=== PATIENT | female | born 1940 | race Caucasian/White ===

== ENCOUNTER 2017-06-18 05:26 | Inpatient (IN) | payer MEDICARE, BC ==
[2017-06-05 11:11] LABS: BASOPHILS # (AUTO) 0.1 X10'3 (0-0.2); BASOPHILS % (AUTO) 0.6 % (0-1); EOSINOPHILS # (AUTO) 0.1 X10'3 (0-0.9); EOSINOPHILS % (AUTO) 1.6 % (0-6); LYMPHOCYTES # (AUTO) 0.5 X10'3 (1.1-4.8); LYMPHOCYTES % (AUTO) 6.4 % (21-51); MEAN CORPUSCULAR HEMOGLOBIN 27.3 PG (27.0-31.0); MEAN CORPUSCULAR HGB CONC 31.8 % (33.0-36.5); MEAN CORPUSCULAR VOLUME 86.1 FL (78-98); MEAN PLATELET VOLUME 7.4 FL (7.4-10.4); MONOCYTES # (AUTO) 1.1 X10'3 (0-0.9); MONOCYTES % (AUTO) 12.6 % (2-12); NEUTROPHILS # (AUTO) 6.6 X10'3 (1.8-7.7); NEUTROPHILS % (AUTO) 78.8 % (42-75); PRE OP HEMATOCRIT 34.4 % (35.0-45.0); PRE OP PLATELET COUNT 447 X10'3 (140-440); RED CELL DISTRIBUTION WIDTH 17.2 % (11.5-14.5)
[2017-06-05 11:14] LABS: PRE OP HEMOGLOBIN 10.9 g/dL (12.0-16.0)
[2017-06-05 11:28] LABS: ALBUMIN 3.3 G/DL (3.4-5.0); ALBUMIN/GLOBULIN RATIO 0.8 (1.1-1.5); ALKALINE PHOSPHATASE 82 IU/L (46-116); BLOOD UREA NITROGEN 7 MG/DL (7-18); BUN/CREATININE RATIO 12.3 (6.6-38.0); CHLORIDE 96 MMOL/L (99-107); CREATININE 0.57 MG/DL (0.40-0.90); PRE OP ALT 19 U/L (30-65); PRE OP ANION GAP 8 (8-16); PRE OP AST 15 U/L (10-37); PRE OP BILIRUB, TOTAL 0.2 MG/DL (0.0-1.0); PRE OP GLUCOSE 130 MG/DL (70-104); PRE OP POTASSIUM 3.8 MMOL/L (3.4-5.1); PRE OP SODIUM 134 MMOL/L (135-145); TOTAL CARBON DIOXIDE 30.5 MMOL/L (24-32); TOTAL PROTEIN 7.6 G/DL (6.4-8.2); eGFR > 90 ML/MIN
[~2017-06-18] VITALS: Ht 154.9 cm; Wt 50.3 kg
[2017-06-18] VITALS (18 sets, daily range): BP systolic 93–118; BP diastolic 39–67
[~2017-06-18 05:26] MED LIST: ACET-2119 PO; AMLO5TAB PO; ASPI-611 PO; BENA20TA2 PO; CLOP75TA33 PO; DOCU-28 PO; MULT-1085 PO; SPIIN IH; [UNRECOGNIZED DRUG - REMARK] IV ONE; ringers solution, lacted 1,000 ML IV SCH
[2017-06-18] MEDS ORDERED: oxyCODONE SR 10mg (sust. release) tab PO ONE (05:30)
[2017-06-18] MEDS ORDERED: celeCOXIB 100mg capsule PO ONE (05:30)
[2017-06-18] MEDS ORDERED: acetaminophen 325mg tablet PO ONE (05:30)
[2017-06-18] MEDS ORDERED: clindamycin-Cleocin 900mg/D5W 50 ML IV ONE (05:30)
[2017-06-18] MEDS ORDERED: famotidine 20mg tablet PO ONE (05:30)
[2017-06-18] MEDS ORDERED: gabapentin 300mg capsule PO ONE (05:30)
[2017-06-18] MEDS ORDERED: metoclopramide 5 mg/ml inj IV ONE (05:30)
[2017-06-18] MEDS ORDERED: VANCOMYCIN INJ 1000 MG in NORMAL SALINE 250ml IV.SOLN IV ONE (05:30)
[2017-06-18] MEDS ORDERED: LIDOcaine 1% (10mg/ml) 2ml vial ONE (05:55)
[2017-06-18] MEDS ORDERED: ceFAZolin 2gm in dextrose, iso 50 ML IV ONE ×2 (06:20→07:10)
[2017-06-18 06:31] LABS: CLARITY,URINE CLOUDY (Clear); COLOR,URINE STRAW (Yellow); GLUCOSE, URINE NEGATIVE (Neg); KETONES,URINE NEGATIVE (Neg); LEUKOCYTE ESTERASE ,URINE LARGE (Neg); NITRITES, URINE NEGATIVE (Neg); OCCULT BLOOD,URINE MODERATE (Neg); PH,URINE 6.5 (4.8-8.0); PROTEIN,URINE NEGATIVE (Neg); UROBILINOGEN,URINE 0.2 E.U/dL (0.2-1.0)
[2017-06-18 06:40] LABS: UA COLLECTION TYPE NON-SPECIFIED
[2017-06-18 06:41] LABS: BACTERIA,URINE 2+ /HPF (Neg); RBC,URINE 0-2 /HPF (0-2); SQUAMOUS EPITHELIAL CELL,UR FEW /LPF (FEW); WBC,URINE TNTC /HPF (0-4)
[2017-06-18] MEDS ORDERED: ketorolac trometh. 30mg/ml inj. ONE (07:03)
[2017-06-18] MEDS ORDERED: ROPIVAcaine 0.5% (5mg/ml) 30ml vial ONE (07:04)
[2017-06-18] MEDS ORDERED: epiNEPHrine 1 mg/ml inj ONE (07:04)
[2017-06-18] MEDS ORDERED: vancomycin 1,000mg inj ONE (07:04)
[2017-06-18] MEDS ORDERED: cloNIDine hcl/PF 100mcg/ml inj ONE ×2 (07:04→07:25)
[2017-06-18] MEDS ORDERED: albuterol 2.5 MG/3 ML nebule NEB STA (07:09)
[2017-06-18] MEDS ORDERED: ceFAZolin 2gm in dextrose, iso 100 ML IV ONE (07:10)
[2017-06-18] MEDS ORDERED: albuterol 2.5 MG/3 ML nebule ONE (07:20)
[2017-06-18] MEDS ORDERED: tranexamic acid inj. 1,000 MG in normal saline 100ml IV soln 90 ML IV ONE (07:25)
[2017-06-18] MEDS ORDERED: EPHEDRINE SULFATE/0.9% NACL/PF 50 MG/5 ML ML IJ ONE (07:26)
[2017-06-18] MEDS ORDERED: MORPHINE SULFATE/PF 0.5 MG/ML 10ML AMPUL ONE (07:31)
[2017-06-18] MEDS ORDERED: MIDAZolam 1mg/ml 10ml vial ONE (07:31)
[2017-06-18] MEDS ORDERED: NALOXONE IV PRN (08:29)
[2017-06-18] MEDS ORDERED: NORMAL SALINE IV PRN (08:29)
[2017-06-18] MEDS ORDERED: ringers solution, lacted 1,000 ML IV SCH (08:29)
[2017-06-18] MEDS ORDERED: meperidine/PF 25mg/ml syringe IV PRN (08:30)
[2017-06-18] MEDS ORDERED: ondansetron/PF 4mg/2ml inj IV PRN ×3 (08:30→09:45)
[2017-06-18] MEDS ORDERED: diphenhydrAMINE 50 mg/ml inj IV PRN (08:30)
[2017-06-18] MEDS ORDERED: meperidine/PF 25mg/ml syringe IV ONE (08:30)
[2017-06-18] MEDS ORDERED: proCHLORperazine 10 MG/2 ml inj IV PRN (08:30)
[2017-06-18] MEDS ORDERED: 0.9 % SODIUM CHLORIDE 10 ML VIAL ONE (09:31)
[2017-06-18] MEDS ORDERED: dexamethasone sod phosphate 4mg/ml inj. ONE (09:31)
[2017-06-18] MEDS ORDERED: propofol inj 20 ML IV ONE (09:31)
[2017-06-18] MEDS ORDERED: BUPIVAcaine/PF 2.5 mg/ml (0.25%) 30ml vial ONE (09:31)
[2017-06-18] MEDS ORDERED: acetaminophen 325mg tablet PO PRN (09:45)
[2017-06-18] MEDS ORDERED: magnesium hydroxide 30ml (MOM) UD suspension PO PRN (09:45)
[2017-06-18] MEDS ORDERED: HYDROcodone/acetaminophen 10/325mg tab PO PRN (09:45)
[2017-06-18] MEDS ORDERED: HYDROmorphone 1 mg/ml syringe IV PRN ×2 (09:45)
[2017-06-18] MEDS ORDERED: bisacodyl 10mg suppository rectal RC PRN (09:45)
[2017-06-18] MEDS ORDERED: diphenhydrAMINE 25mg capsule PO PRN ×2 (09:45)
[2017-06-18] MEDS: potassium cl 20mEq in 1/2 NS 1,000 ML IV SCH ×2 (12:15→20:08)
[2017-06-18] MEDS: gabapentin 300mg capsule PO SCH ×2 (14:59→20:08)
[2017-06-18] MEDS: cefazolin 1gm/NS 100mL 100 ML IV SCH ×2 (15:56→23:19)
[2017-06-18] MEDS ORDERED: vancomycin/NS 1 GM ADD-VANTAGE 250 ML IV SCH (20:00)
[2017-06-18] MEDS: ascorbic acid 500mg tablet PO SCH (20:08)
[2017-06-18] MEDS: sennosides 8.6mg tablet PO SCH (20:09)
[2017-06-19] VITALS (7 sets, daily range): BP systolic 105–129; BP diastolic 42–66
[2017-06-19] MEDS: potassium cl 20mEq in 1/2 NS 1,000 ML IV SCH ×3 (01:43→15:20)
[2017-06-19] MEDS: HYDROcodone/acetaminophen 10/325mg tab PO PRN ×4 (05:07→20:10)
[2017-06-19 06:35] LABS: BASOPHILS % (AUTO) 0.2 % (0-1); EOSINOPHILS # (AUTO) 0.2 X10'3 (0-0.9); EOSINOPHILS % (AUTO) 1.5 % (0-6); HEMATOCRIT 25.9 % (35.0-45.0); HEMOGLOBIN 8.2 g/dl (12.0-16.0); LYMPHOCYTES # (AUTO) 0.5 X10'3 (1.1-4.8); MEAN CORPUSCULAR HEMOGLOBIN 26.8 PG (27.0-31.0); MEAN CORPUSCULAR HGB CONC 31.6 % (33.0-36.5); MEAN CORPUSCULAR VOLUME 84.6 FL (78-98); MEAN PLATELET VOLUME 7.2 FL (7.4-10.4); MONOCYTES # (AUTO) 1.2 X10'3 (0-0.9); MONOCYTES % (AUTO) 11.4 % (2-12); NEUTROPHILS # (AUTO) 8.9 X10'3 (1.8-7.7); NEUTROPHILS % (AUTO) 81.9 % (42-75); PLATELET COUNT 307 X10'3 (140-440); RED BLOOD COUNT 3.06 X10'6 (4.20-5.60); RED CELL DISTRIBUTION WIDTH 17.2 % (11.5-14.5); WHITE BLOOD COUNT 10.9 X10'3 (4.5-11.0)
[2017-06-19 06:48] LABS: ANION GAP 2 (8-16); CHLORIDE 98 MMOL/L (99-107); POTASSIUM 5.1 MMOL/L (3.5-5.1); SODIUM 128 MMOL/L (135-145); TOTAL CARBON DIOXIDE 28.1 MMOL/L (24-32)
[2017-06-19] MEDS: multivitamins, therapeutics tablet PO SCH (07:27)
[2017-06-19] MEDS: ascorbic acid 500mg tablet PO SCH ×2 (07:27→20:10)
[2017-06-19] MEDS: gabapentin 300mg capsule PO SCH ×3 (07:27→20:10)
[2017-06-19] MEDS: amLODIPine 5mg tablet PO SCH (07:28)
[2017-06-19] MEDS: lisinopril 20mg tablet PO SCH (07:28)
[2017-06-19] MEDS ORDERED: non-formulary drug (Multivitamin (Multi Vitamin Daily) 1 EACH) PO SCH (08:00)
[2017-06-19] MEDS ORDERED: aspirin 325mg tablet PO SCH (08:30)
[2017-06-19] MEDS: ipratropium 0.5 MG/2.5ML nebule NEB SCH ×3 (10:15→20:01)
[2017-06-19] MEDS: Protein Shake (high protein) 240ml (8oz) cup PO SCH (18:00)
[2017-06-19] MEDS: sennosides 8.6mg tablet PO SCH (20:10)
[2017-06-19] MEDS: clopidogrel 75mg tablet PO SCH (20:10)
[2017-06-20] MEDS: HYDROcodone/acetaminophen 10/325mg tab PO PRN ×3 (00:07→17:50)
[2017-06-20] MEDS: potassium cl 20mEq in 1/2 NS 1,000 ML IV SCH (01:43)
[2017-06-20] MEDS: ipratropium 0.5 MG/2.5ML nebule NEB SCH ×4 (03:10→20:08)
[2017-06-20 06:00] VITALS: BP 144/57
[2017-06-20 06:52] LABS: BASOPHILS # (AUTO) 0.1 X10'3 (0-0.2); BASOPHILS % (AUTO) 0.6 % (0-1); EOSINOPHILS # (AUTO) 0.3 X10'3 (0-0.9); EOSINOPHILS % (AUTO) 2.6 % (0-6); HEMATOCRIT 27.4 % (35.0-45.0); HEMOGLOBIN 8.6 g/dl (12.0-16.0); LYMPHOCYTES # (AUTO) 0.5 X10'3 (1.1-4.8); LYMPHOCYTES % (AUTO) 4.5 % (21-51); MEAN CORPUSCULAR HEMOGLOBIN 26.4 PG (27.0-31.0); MEAN CORPUSCULAR HGB CONC 31.5 % (33.0-36.5); MEAN CORPUSCULAR VOLUME 83.9 FL (78-98); MEAN PLATELET VOLUME 7.6 FL (7.4-10.4); MONOCYTES # (AUTO) 1.3 X10'3 (0-0.9); MONOCYTES % (AUTO) 11.5 % (2-12); NEUTROPHILS # (AUTO) 8.8 X10'3 (1.8-7.7); NEUTROPHILS % (AUTO) 80.8 % (42-75); PLATELET COUNT 308 X10'3 (140-440); RED BLOOD COUNT 3.26 X10'6 (4.20-5.60); RED CELL DISTRIBUTION WIDTH 16.7 % (11.5-14.5); WHITE BLOOD COUNT 10.9 X10'3 (4.5-11.0)
[2017-06-20] MEDS: Protein Shake (high protein) 240ml (8oz) cup PO SCH ×2 (07:00→12:00)
[2017-06-20] MEDS: amLODIPine 5mg tablet PO SCH (09:42)
[2017-06-20] MEDS: lisinopril 20mg tablet PO SCH (09:43)
[2017-06-20] MEDS: gabapentin 300mg capsule PO SCH ×3 (09:43→20:40)
[2017-06-20] MEDS: multivitamins, therapeutics tablet PO SCH (09:43)
[2017-06-20] MEDS: ascorbic acid 500mg tablet PO SCH ×2 (09:43→20:40)
[2017-06-20 10:00] VITALS: BP 120/45
[2017-06-20 18:00] VITALS: BP 140/55
[2017-06-20] MEDS: sennosides 8.6mg tablet PO SCH (20:39)
[2017-06-20] MEDS: clopidogrel 75mg tablet PO SCH (20:39)
[2017-06-20 22:00] VITALS: BP 130/61
[2017-06-21] MEDS: ipratropium 0.5 MG/2.5ML nebule NEB SCH ×2 (02:13→07:37)
[2017-06-21] MEDS: HYDROcodone/acetaminophen 10/325mg tab PO PRN ×3 (03:09→11:32)
[2017-06-21 05:00] VITALS: BP 152/66
[2017-06-21 06:54] LABS: BASOPHILS % (AUTO) 0 % (0-1); EOSINOPHILS # (AUTO) 0.4 X10'3 (0-0.9); EOSINOPHILS % (AUTO) 2.9 % (0-6); HEMATOCRIT 27.3 % (35.0-45.0); HEMOGLOBIN 8.7 g/dl (12.0-16.0); LYMPHOCYTES # (AUTO) 0.8 X10'3 (1.1-4.8); LYMPHOCYTES % (AUTO) 6.5 % (21-51); MEAN CORPUSCULAR HEMOGLOBIN 26.6 PG (27.0-31.0); MEAN CORPUSCULAR HGB CONC 31.9 % (33.0-36.5); MEAN CORPUSCULAR VOLUME 83.3 FL (78-98); MEAN PLATELET VOLUME 7.6 FL (7.4-10.4); MONOCYTES % (AUTO) 7.8 % (2-12); NEUTROPHILS # (AUTO) 10.2 X10'3 (1.8-7.7); NEUTROPHILS % (AUTO) 82.8 % (42-75); PLATELET COUNT 329 X10'3 (140-440); RED BLOOD COUNT 3.27 X10'6 (4.20-5.60); WHITE BLOOD COUNT 12.3 X10'3 (4.5-11.0)
[2017-06-21] MEDS: gabapentin 300mg capsule PO SCH (08:46)
[2017-06-21] MEDS: lisinopril 20mg tablet PO SCH (08:47)
[2017-06-21] MEDS: amLODIPine 5mg tablet PO SCH (08:47)
[2017-06-21] MEDS: ascorbic acid 500mg tablet PO SCH (08:47)
[2017-06-21] MEDS: multivitamins, therapeutics tablet PO SCH (08:47)
[2017-06-21 10:00] VITALS: BP 138/60
== END 2017-06-21 12:35 | DRG 469 ==
LOC: PAS IN 05:26 → EDSTATUS 08:30 → ORTHO 4S 10:40
PROVIDERS: ADMIT Orthopaedic Surgery; ATTEND Orthopaedic Surgery
PROC: 3E0T3BZ Introduction of Anesthetic Agent into Peripheral Nerves and Plexi, Percutaneous Approach (ICD-10-PCS; 2017-06-18)
PROC: 0SR906Z Replacement of Right Hip Joint with Oxidized Zirconium on Polyethylene Synthetic Substitute, Open Approach (ICD-10-PCS; principal; 2017-06-18 07:32)
DX: M87.051 Idiopathic aseptic necrosis of right femur (principal); L89.153 Pressure ulcer of sacral region, stage 3; E46 Unspecified protein-calorie malnutrition; D50.0 Iron deficiency anemia secondary to blood loss (chronic); G30.9 Alzheimer's disease, unspecified; I25.10 Atherosclerotic heart disease of native coronary artery without angina pectoris; J44.9 Chronic obstructive pulmonary disease, unspecified; I10 Essential (primary) hypertension; M19.90 Unspecified osteoarthritis, unspecified site; I73.9 Peripheral vascular disease, unspecified; Z90.710 Acquired absence of both cervix and uterus; Z72.89 Other problems related to lifestyle; Z88.0 Allergy status to penicillin; Z88.2 Allergy status to sulfonamides; Z79.82 Long term (current) use of aspirin; Z79.899 Other long term (current) drug therapy; Z68.21 Body mass index [BMI] 21.0-21.9, adult; Z87.891 Personal history of nicotine dependence
CPT/HCPCS: 36415; 71020; 72170; 80051; 80053; 81001; 85025; 86885; 86900; 86901; 87070; 87077; 87088; 87186; 94640; 94760; 97110; 97116; 97161; A4615; A6212; A6213; A6449; A7000; C1758; C1776; J0171; J0690; J0735; J1100; J1170; J1885; J2250; J2274; J2405; J2704; J2765; J2795; J3370; J3490; J7030; J7120; Q0163

== ENCOUNTER 2017-12-09 08:58 | Outpatient (CLI) | payer MEDICARE, BC ==
[~2017-12-09] VITALS: Ht 157.5 cm; Wt 51.3 kg
[~2017-12-09 08:58] MED LIST changes: -ACET-2119 PO; -ASPI-611 PO; -DOCU-28 PO; -[UNRECOGNIZED DRUG - REMARK] IV ONE; -ringers solution, lacted 1,000 ML IV SCH
[2017-12-09] MEDS ORDERED: AMLO1CAP9 PO (10:01)
[2017-12-09] MEDS ORDERED: DEXL60CA3 PO (10:02)
[2017-12-09] MEDS ORDERED: ASPI-611 PO (10:02)
[2017-12-09] MEDS ORDERED: ALBU2.5V12 NEB (10:04)
[2017-12-09 10:18] LABS: BASOPHILS % (AUTO) 0 % (0-1); EOSINOPHILS # (AUTO) 0.2 X10'3 (0-0.9); EOSINOPHILS % (AUTO) 2.6 % (0-6); LYMPHOCYTES % (AUTO) 10.3 % (21-51); MEAN CORPUSCULAR HEMOGLOBIN 24.7 PG (27.0-31.0); MEAN CORPUSCULAR HGB CONC 30.6 % (33.0-36.5); MEAN CORPUSCULAR VOLUME 80.9 FL (78-98); MONOCYTES # (AUTO) 0.6 X10'3 (0-0.9); MONOCYTES % (AUTO) 6.1 % (2-12); NEUTROPHILS # (AUTO) 7.8 X10'3 (1.8-7.7); PRE OP HEMATOCRIT 26.8 % (35.0-45.0); PRE OP PLATELET COUNT 410 X10'3 (140-440); RED BLOOD COUNT 3.32 X10'6 (4.20-5.60); RED CELL DISTRIBUTION WIDTH 22.2 % (11.5-14.5)
[2017-12-09 10:19] LABS: CLARITY,URINE Clear (Clear); COLOR,URINE Yellow (Yellow); GLUCOSE, URINE Negative (Neg); KETONES,URINE Negative (Neg); LEUKOCYTE ESTERASE ,URINE Negative (Neg); NITRITES, URINE Negative (Neg); OCCULT BLOOD,URINE Negative (Neg); PH,URINE 5.5 (4.8-8.0); PROTEIN,URINE Negative (Neg); UROBILINOGEN,URINE 0.2 E.U/dL (0.2-1.0)
[2017-12-09 10:20] LABS: UA COLLECTION TYPE CLN CATCH MIDSTREAM
[2017-12-09 10:26] LABS: PRE OP HEMOGLOBIN 8.2 g/dL (12.0-16.0)
[2017-12-09 10:28] LABS: PRE OP PROTIME 10.7 SECONDS (9.0-12.0)
[2017-12-09 10:32] LABS: ALBUMIN 3.9 G/DL (3.4-5.0); ALKALINE PHOSPHATASE 50 IU/L (46-116); BLOOD UREA NITROGEN 12 MG/DL (7-18); BUN/CREATININE RATIO 16.4 (6.6-38.0); CALCIUM 8.8 MG/DL (8.5-10.1); CHLORIDE 100 MMOL/L (99-107); CREATININE 0.73 MG/DL (0.40-0.90); PRE OP ALT 21 U/L (30-65); PRE OP ANION GAP 11 (8-16); PRE OP AST 18 U/L (10-37); PRE OP BILIRUB, TOTAL 0.3 MG/DL (0.0-1.0); PRE OP GLUCOSE 104 MG/DL (70-104); PRE OP POTASSIUM 4.1 MMOL/L (3.4-5.1); PRE OP SODIUM 137 MMOL/L (135-145); TOTAL CARBON DIOXIDE 26.4 MMOL/L (24-32); TOTAL PROTEIN 7.7 G/DL (6.4-8.2); eGFR 78 ML/MIN
[2017-12-09 11:04] LABS: ANISOCYTOSIS 3+; LARGE PLATELETS FEW; PLATELET ESTIMATE NORMAL
== END 2017-12-09 23:59 | disposition home or self-care (01) ==
LOC: PRE-OP 08:58 → EDSTATUS 12-16 14:30
PROVIDERS: ATTEND Orthopaedic Surgery
DX: Z01.818 Encounter for other preprocedural examination (principal); R91.8 Other nonspecific abnormal finding of lung field; M16.12 Unilateral primary osteoarthritis, left hip; G30.9 Alzheimer's disease, unspecified; I25.10 Atherosclerotic heart disease of native coronary artery without angina pectoris; J44.9 Chronic obstructive pulmonary disease, unspecified; M62.81 Muscle weakness (generalized); I10 Essential (primary) hypertension; E78.5 Hyperlipidemia, unspecified; Z88.0 Allergy status to penicillin; Z96.641 Presence of right artificial hip joint; Z79.899 Other long term (current) drug therapy; Z79.82 Long term (current) use of aspirin
CPT/HCPCS: 36415; 71046; 80053; 81003; 85025; 85610; 85730; 86885; 86900; 86901; 86920; 87070

== ENCOUNTER 2018-02-17 16:00 | Inpatient (IN) | payer MEDICARE, BC ==
[~2018-02-17] VITALS: Ht 157.5 cm; Wt 54.8 kg
[~2018-02-17 16:00] MED LIST changes: +ALBU2.5V12 NEB; +AMLO1CAP9 PO; -AMLO5TAB PO; +ASPI-611 PO; -BENA20TA2 PO; -MULT-1085 PO
[2018-03-10] MEDS ORDERED: MULT-1085 PO (13:36)
[2018-03-10] MEDS ORDERED: ACET-75 PO (13:36)
[2018-03-10] MEDS ORDERED: IBUP-1984 PO (13:36)
[2018-03-10 14:48] LABS: BASOPHILS % (AUTO) 0.2 % (0-1); EOSINOPHILS # (AUTO) 0.2 X10'3 (0-0.9); EOSINOPHILS % (AUTO) 2.7 % (0-6); LYMPHOCYTES # (AUTO) 0.9 X10'3 (1.1-4.8); LYMPHOCYTES % (AUTO) 10.6 % (21-51); MEAN CORPUSCULAR HGB CONC 32.5 % (33.0-36.5); MEAN CORPUSCULAR VOLUME 92.2 FL (78-98); MONOCYTES # (AUTO) 0.6 X10'3 (0-0.9); MONOCYTES % (AUTO) 6.7 % (2-12); NEUTROPHILS # (AUTO) 6.7 X10'3 (1.8-7.7); NEUTROPHILS % (AUTO) 79.8 % (42-75); PRE OP HEMATOCRIT 42.9 % (35.0-45.0); PRE OP HEMOGLOBIN 13.9 g/dL (12.0-16.0); PRE OP PLATELET COUNT 300 X10'3 (140-440); RED BLOOD COUNT 4.66 X10'6 (4.20-5.60); RED CELL DISTRIBUTION WIDTH 13.8 % (11.5-14.5)
[2018-03-10 14:51] LABS: PRE OP PROTIME 10.5 SECONDS (9.0-12.0)
[2018-03-10 14:54] LABS: ALBUMIN 3.7 G/DL (3.4-5.0); ALBUMIN/GLOBULIN RATIO 1.1 (1.1-1.5); ALKALINE PHOSPHATASE 63 IU/L (46-116); BLOOD UREA NITROGEN 27 MG/DL (7-18); BUN/CREATININE RATIO 46.6 (6.6-38.0); CALCIUM 9.1 MG/DL (8.5-10.1); CHLORIDE 101 MMOL/L (99-107); CREATININE 0.58 MG/DL (0.40-0.90); PRE OP ALT 25 U/L (30-65); PRE OP ANION GAP 8 (8-16); PRE OP AST 15 U/L (10-37); PRE OP BILIRUB, TOTAL 0.2 MG/DL (0.0-1.0); PRE OP GLUCOSE 93 MG/DL (70-104); PRE OP POTASSIUM 4.1 MMOL/L (3.4-5.1); PRE OP SODIUM 139 MMOL/L (135-145); TOTAL CARBON DIOXIDE 29.7 MMOL/L (24-32); TOTAL PROTEIN 7.1 G/DL (6.4-8.2); eGFR > 90 ML/MIN
[2018-03-10 14:54] LABS: CLARITY,URINE CLEAR (Clear); COLOR,URINE YELLOW (Yellow); GLUCOSE, URINE NEGATIVE (Neg); KETONES,URINE NEGATIVE (Neg); LEUKOCYTE ESTERASE ,URINE TRACE (Neg); NITRITES, URINE NEGATIVE (Neg); OCCULT BLOOD,URINE NEGATIVE (Neg); PROTEIN,URINE NEGATIVE (Neg); UROBILINOGEN,URINE 0.2 E.U/dL (0.2-1.0)
[2018-03-10 14:59] LABS: UA COLLECTION TYPE CLN CATCH MIDSTREAM
[2018-03-10 15:07] LABS: RBC,URINE NONE SEEN /HPF (0-2); WBC,URINE 0-4 /HPF (0-4)
[2018-03-10 15:08] LABS: BACTERIA,URINE NONE SEEN /HPF (Neg); SQUAMOUS EPITHELIAL CELL,UR FEW /LPF (FEW)
[2018-03-17] VITALS (18 sets, daily range): BP systolic 104–158; BP diastolic 39–158
[2018-03-17] MEDS ORDERED: ringers solution, lacted 1,000 ML IV SCH ×2 (05:00→11:04)
[2018-03-17] MEDS ORDERED: famotidine 20mg tablet PO ONE (05:30)
[2018-03-17] MEDS ORDERED: VANCOMYCIN INJ 1000 MG in NORMAL SALINE 250ml IV.SOLN IV ONE (05:30)
[2018-03-17] MEDS ORDERED: gabapentin 300mg capsule PO ONE (05:30)
[2018-03-17] MEDS ORDERED: celeCOXIB 100mg capsule PO ONE (05:30)
[2018-03-17] MEDS ORDERED: tranexamic acid inj. 1,000 MG in normal saline 100ml IV soln 90 ML IV ONE (05:30)
[2018-03-17] MEDS ORDERED: MESSAGE TO NURSING PO ONE (05:30)
[2018-03-17] MEDS ORDERED: acetaminophen 325mg tablet PO ONE (05:30)
[2018-03-17] MEDS ORDERED: metoclopramide 5 mg/ml inj IV ONE (05:30)
[2018-03-17] MEDS ORDERED: cefazolin/dext.iso 2gm/100ml 100 ML IV ONE (06:35)
[2018-03-17] MEDS ORDERED: diphenhydrAMINE 25mg capsule PO PRN ×2 (07:00→21:00)
[2018-03-17] MEDS ORDERED: vancomycin 1,000mg inj ONE (08:40)
[2018-03-17] MEDS ORDERED: epiNEPHrine 1 mg/ml inj ONE (08:40)
[2018-03-17] MEDS ORDERED: ketorolac trometh. 30mg/ml inj. ONE (08:40)
[2018-03-17] MEDS ORDERED: cloNIDine hcl/PF 100mcg/ml inj ONE (08:40)
[2018-03-17] MEDS ORDERED: ROPIVAcaine 0.5% (5mg/ml) 30ml vial ONE (08:40)
[2018-03-17] MEDS ORDERED: BUPIVAcaine/dex-water/PF 7.5 mg/ml 2ml ampul ONE (09:55)
[2018-03-17] MEDS ORDERED: fentaNYL/PF 50MCG/1 ML 2ML syringe ONE (09:57)
[2018-03-17] MEDS ORDERED: morphine /PF 1mg/ml 10ml inj. ONE (09:57)
[2018-03-17] MEDS ORDERED: diphenhydrAMINE 50 mg/ml inj ONE (10:01)
[2018-03-17] MEDS ORDERED: propofol inj 20 ML IV ONE (10:43)
[2018-03-17] MEDS ORDERED: MIDAZolam 5mg/5ml vial ONE (10:43)
[2018-03-17] MEDS ORDERED: LIDOcaine 1%/PF 5ML 10 MG/ML VIAL ONE (10:43)
[2018-03-17] MEDS ORDERED: phenylephrine 10mg/ml inj. ONE (10:49)
[2018-03-17] MEDS ORDERED: ePHEDrine 50MG/ML INJ. ONE (10:49)
[2018-03-17] MEDS ORDERED: naloxone 2mg/2ml inj 1.1 MG in normal saline 500ml IV soln 500 ML IV PRN (11:04)
[2018-03-17] MEDS ORDERED: diphenhydrAMINE 50 mg/ml inj IV PRN (11:05)
[2018-03-17] MEDS ORDERED: morphine 4 MG/ML inj SYRINge IV PRN (11:05)
[2018-03-17] MEDS ORDERED: ondansetron/PF 4mg/2ml inj IV PRN ×2 (11:05)
[2018-03-17] MEDS ORDERED: acetaminophen 325mg tablet PO PRN (13:05)
[2018-03-17] MEDS ORDERED: HYDROmorphone 1 mg/ml syringe IV PRN (13:16)
[2018-03-17] MEDS: ipratropium 0.5 MG/2.5ML nebule IH SCH ×2 (14:00→20:00)
[2018-03-17] MEDS ORDERED: HYDROcodone/acetaminophen 10/325mg tab PO PRN (16:00)
[2018-03-17] MEDS: ceFAZolin 1GM/D5W- ADD-VANTAGE 50 ML IV SCH ×2 (16:38→23:42)
[2018-03-17] MEDS: potassium cl 20mEq in 1/2 NS 1,000 ML IV SCH ×2 (16:38→23:47)
[2018-03-17] MEDS: ondansetron/PF 4mg/2ml inj IV PRN (16:47)
[2018-03-17] MEDS ORDERED: vancomycin/NS 1 GM ADD-VANTAGE 250 ML IV SCH (20:00)
[2018-03-17] MEDS: ascorbic acid 500mg tablet PO SCH (20:22)
[2018-03-17] MEDS: gabapentin 300mg capsule PO SCH (20:23)
[2018-03-17] MEDS: lactobacillus rhamnosus 10,000 MMU CELLS/CAPSULE PO SCH (20:23)
[2018-03-17] MEDS: sennosides 8.6mg tablet PO SCH (20:23)
[2018-03-17] MEDS ORDERED: magnesium hydroxide 30ml (MOM) UD suspension PO PRN (21:00)
[2018-03-18 02:00] VITALS: BP 114/47
[2018-03-18] MEDS: ipratropium 0.5 MG/2.5ML nebule IH SCH ×4 (02:00→20:00)
[2018-03-18 05:00] VITALS: BP 129/56
[2018-03-18] MEDS: potassium cl 20mEq in 1/2 NS 1,000 ML IV SCH ×2 (05:04→13:25)
[2018-03-18] MEDS: HYDROcodone/acetaminophen 10/325mg tab PO PRN ×4 (05:07→20:13)
[2018-03-18 05:43] LABS: BASOPHILS % (AUTO) 0.6 % (0-1); EOSINOPHILS # (AUTO) 0.2 X10'3 (0-0.9); EOSINOPHILS % (AUTO) 2.9 % (0-6); HEMOGLOBIN 10.8 g/dl (12.0-16.0); LYMPHOCYTES # (AUTO) 0.6 X10'3 (1.1-4.8); LYMPHOCYTES % (AUTO) 9.4 % (21-51); MEAN CORPUSCULAR HEMOGLOBIN 31.7 PG (27.0-31.0); MEAN CORPUSCULAR HGB CONC 33.8 % (33.0-36.5); MEAN CORPUSCULAR VOLUME 93.8 FL (78-98); MEAN PLATELET VOLUME 7.8 FL (7.4-10.4); MONOCYTES # (AUTO) 0.7 X10'3 (0-0.9); MONOCYTES % (AUTO) 11.3 % (2-12); NEUTROPHILS # (AUTO) 4.6 X10'3 (1.8-7.7); NEUTROPHILS % (AUTO) 75.8 % (42-75); PLATELET COUNT 180 X10'3 (140-440); RED BLOOD COUNT 3.41 X10'6 (4.20-5.60); RED CELL DISTRIBUTION WIDTH 12.1 % (11.5-14.5); WHITE BLOOD COUNT 6.1 X10'3 (4.5-11.0)
[2018-03-18 06:14] LABS: ANION GAP 3 (8-16); CHLORIDE 103 MMOL/L (99-107); POTASSIUM 4.8 MMOL/L (3.5-5.1); SODIUM 136 MMOL/L (135-145); TOTAL CARBON DIOXIDE 29.8 MMOL/L (24-32)
[2018-03-18] MEDS: multivitamins, therapeutics tablet PO SCH (07:26)
[2018-03-18] MEDS: gabapentin 300mg capsule PO SCH ×3 (07:26→20:13)
[2018-03-18] MEDS: ascorbic acid 500mg tablet PO SCH ×2 (07:26→20:13)
[2018-03-18] MEDS: amLODIPine 5mg tablet PO SCH (07:31)
[2018-03-18] MEDS: aspirin 81mg tablet.DR PO SCH (07:32)
[2018-03-18] MEDS: lactobacillus rhamnosus 10,000 MMU CELLS/CAPSULE PO SCH ×2 (07:32→20:13)
[2018-03-18] MEDS: lisinopril 20mg tablet PO SCH (07:32)
[2018-03-18] MEDS ORDERED: bisacodyl 10mg suppository rectal RC PRN (08:00)
[2018-03-18] MEDS ORDERED: [UNRECOGNIZED DRUG - REMARK] IU ONE (09:45)
[2018-03-18 12:21] VITALS: BP 116/44
[2018-03-18] MEDS ORDERED: lactose-reduced food (Ensure High Protein) 237ml bottle PO SCH (12:30)
[2018-03-18 15:55] VITALS: BP 115/50
[2018-03-18 18:00] VITALS: BP 117/60
[2018-03-18] MEDS: clopidogrel 75mg tablet PO SCH (20:13)
[2018-03-18] MEDS: sennosides 8.6mg tablet PO SCH (20:13)
[2018-03-19] MEDS: potassium cl 20mEq in 1/2 NS 1,000 ML IV SCH ×2 (00:45→05:04)
[2018-03-19] MEDS: ipratropium 0.5 MG/2.5ML nebule IH SCH ×3 (02:00→20:21)
[2018-03-19] MEDS: HYDROcodone/acetaminophen 10/325mg tab PO PRN ×2 (05:24→13:38)
[2018-03-19 06:17] LABS: BASOPHILS % (AUTO) 0.2 % (0-1); EOSINOPHILS # (AUTO) 0.2 X10'3 (0-0.9); HEMATOCRIT 29.9 % (35.0-45.0); HEMOGLOBIN 10.2 g/dl (12.0-16.0); LYMPHOCYTES # (AUTO) 0.3 X10'3 (1.1-4.8); LYMPHOCYTES % (AUTO) 3.2 % (21-51); MEAN CORPUSCULAR HEMOGLOBIN 31.6 PG (27.0-31.0); MEAN CORPUSCULAR HGB CONC 34.1 % (33.0-36.5); MEAN CORPUSCULAR VOLUME 92.8 FL (78-98); MEAN PLATELET VOLUME 8.1 FL (7.4-10.4); MONOCYTES # (AUTO) 0.9 X10'3 (0-0.9); MONOCYTES % (AUTO) 9.3 % (2-12); NEUTROPHILS # (AUTO) 8.1 X10'3 (1.8-7.7); NEUTROPHILS % (AUTO) 85.3 % (42-75); PLATELET COUNT 179 X10'3 (140-440); RED BLOOD COUNT 3.22 X10'6 (4.20-5.60); RED CELL DISTRIBUTION WIDTH 11.6 % (11.5-14.5); WHITE BLOOD COUNT 9.5 X10'3 (4.5-11.0)
[2018-03-19 07:03] VITALS: BP 170/51
[2018-03-19] MEDS: gabapentin 300mg capsule PO SCH ×4 (08:00→20:32)
[2018-03-19] MEDS: ondansetron/PF 4mg/2ml inj IV PRN ×2 (08:01→20:32)
[2018-03-19] MEDS: lisinopril 20mg tablet PO SCH (08:20)
[2018-03-19 11:22] VITALS: BP 133/49
[2018-03-19] MEDS: lactobacillus rhamnosus 10,000 MMU CELLS/CAPSULE PO SCH ×2 (11:31→20:32)
[2018-03-19] MEDS: amLODIPine 5mg tablet PO SCH (11:32)
[2018-03-19] MEDS: aspirin 81mg tablet.DR PO SCH (11:32)
[2018-03-19] MEDS: multivitamins, therapeutics tablet PO SCH (11:32)
[2018-03-19] MEDS: ascorbic acid 500mg tablet PO SCH ×2 (11:32→20:32)
[2018-03-19 18:00] VITALS: BP 183/55
[2018-03-19] MEDS ORDERED: hydrALAZINE 20mg/ml inj. IV ONE (20:20)
[2018-03-19] MEDS: clopidogrel 75mg tablet PO SCH (20:32)
[2018-03-19] MEDS: sennosides 8.6mg tablet PO SCH (20:33)
[2018-03-19 22:00] VITALS: BP 152/49
[2018-03-20] VITALS (8 sets, daily range): BP systolic 122–189; BP diastolic 44–84
[2018-03-20] MEDS: HYDROmorphone 1 mg/ml syringe IV PRN ×2 (00:38→05:15)
[2018-03-20] MEDS: ipratropium 0.5 MG/2.5ML nebule IH SCH ×4 (03:11→20:01)
[2018-03-20] MEDS: ondansetron/PF 4mg/2ml inj IV PRN ×2 (05:15→12:19)
[2018-03-20 06:42] LABS: BASOPHILS % (AUTO) 0.2 % (0-1); EOSINOPHILS # (AUTO) 0.2 X10'3 (0-0.9); EOSINOPHILS % (AUTO) 1.5 % (0-6); HEMATOCRIT 28.6 % (35.0-45.0); HEMOGLOBIN 9.5 g/dl (12.0-16.0); LYMPHOCYTES # (AUTO) 0.4 X10'3 (1.1-4.8); LYMPHOCYTES % (AUTO) 4.1 % (21-51); MEAN CORPUSCULAR HEMOGLOBIN 30.8 PG (27.0-31.0); MEAN CORPUSCULAR HGB CONC 33.2 % (33.0-36.5); MEAN CORPUSCULAR VOLUME 92.6 FL (78-98); MEAN PLATELET VOLUME 8.4 FL (7.4-10.4); MONOCYTES % (AUTO) 9.6 % (2-12); NEUTROPHILS # (AUTO) 9.2 X10'3 (1.8-7.7); NEUTROPHILS % (AUTO) 84.6 % (42-75); PLATELET COUNT 190 X10'3 (140-440); RED BLOOD COUNT 3.09 X10'6 (4.20-5.60); RED CELL DISTRIBUTION WIDTH 11.3 % (11.5-14.5); WHITE BLOOD COUNT 10.9 X10'3 (4.5-11.0)
[2018-03-20] MEDS ORDERED: scopolamine 1.5mg patch.TD72 TD STA (06:54)
[2018-03-20] MEDS ORDERED: metoclopramide 5 mg/ml inj IV PRN (12:35)
[2018-03-20] MEDS: gabapentin 300mg capsule PO SCH ×3 (13:00→21:00)
[2018-03-20] MEDS: amLODIPine 5mg tablet PO SCH (13:22)
[2018-03-20] MEDS: aspirin 81mg tablet.DR PO SCH (13:22)
[2018-03-20] MEDS: lactobacillus rhamnosus 10,000 MMU CELLS/CAPSULE PO SCH ×2 (13:22→20:00)
[2018-03-20] MEDS: multivitamins, therapeutics tablet PO SCH (13:22)
[2018-03-20] MEDS: ascorbic acid 500mg tablet PO SCH ×2 (13:22→20:00)
[2018-03-20] MEDS: lisinopril 20mg tablet PO SCH (13:22)
[2018-03-20 18:16] LABS: ABG BASE EXCESS 1.8 mmol/L (-2.0-3.0); ABG HCO3 25.9 mmol/L (22.0-26.0); ABG PCO2 (T) 38.7 mmHg (32.0-45.0); ABG PH (T) 7.443 (7.350-7.450); ABG PO2 (T) 64.4 mmHg (83-108); ALLEN'S TEST Positive; FCOHb 0.8 % (0.5-1.5); FLOW 2 L/min; FMetHb 0.3 % (0.3-1.12); TOTAL HEMOGLOBIN 11.3 G/dl (12.0-16.0)
[2018-03-20] MEDS ORDERED: iohexol 350MG/ML 100ml bottle IV ONE (19:58)
[2018-03-20 20:00] LABS: BASOPHILS # (AUTO) 0.1 X10'3 (0-0.2); BASOPHILS % (AUTO) 0.4 % (0-1); EOSINOPHILS # (AUTO) 0.1 X10'3 (0-0.9); EOSINOPHILS % (AUTO) 0.7 % (0-6); HEMATOCRIT 30.4 % (35.0-45.0); HEMOGLOBIN 10.3 g/dl (12.0-16.0); LYMPHOCYTES # (AUTO) 0.4 X10'3 (1.1-4.8); LYMPHOCYTES % (AUTO) 3.5 % (21-51); MEAN CORPUSCULAR HEMOGLOBIN 31.2 PG (27.0-31.0); MEAN CORPUSCULAR HGB CONC 33.7 % (33.0-36.5); MEAN CORPUSCULAR VOLUME 92.6 FL (78-98); MEAN PLATELET VOLUME 8.5 FL (7.4-10.4); MONOCYTES % (AUTO) 7.6 % (2-12); NEUTROPHILS % (AUTO) 87.8 % (42-75); PLATELET COUNT 117 X10'3 (140-440); RED BLOOD COUNT 3.28 X10'6 (4.20-5.60); RED CELL DISTRIBUTION WIDTH 11.5 % (11.5-14.5); WHITE BLOOD COUNT 12.6 X10'3 (4.5-11.0)
[2018-03-20] MEDS: sennosides 8.6mg tablet PO SCH (21:00)
[2018-03-20 21:15] LABS: D-DIMER 1.99 MG/L FEU (0-0.50)
[2018-03-20 21:17] LABS: ALANINE AMINOTRANSFERASE 23 U/L (12-78); ALBUMIN 2.6 G/DL (3.4-5.0); ALBUMIN/GLOBULIN RATIO 0.7 (1.1-1.5); ALKALINE PHOSPHATASE 57 IU/L (46-116); ANION GAP 5 (8-16); ASPARTATE AMINO TRANSFERASE 33 U/L (10-37); BILIRUBIN,TOTAL 0.7 MG/DL (0.1-1.0); BLOOD UREA NITROGEN 9 MG/DL (7-18); BUN/CREATININE RATIO 23.7 (6.6-38.0); CALCIUM 8.1 MG/DL (8.5-10.1); CHLORIDE 82 MMOL/L (99-107); CREATININE 0.38 MG/DL (0.40-0.90); GLUCOSE 131 MG/DL (70-104); PHOSPHORUS 1.7 MG/DL (2.3-4.5); TOTAL CARBON DIOXIDE 30.1 MMOL/L (24-32); TOTAL PROTEIN 6.4 G/DL (6.4-8.2); TROPONIN I 0.14 NG/ML (0.0-0.05); eGFR > 90 ML/MIN
[2018-03-20 21:21] LABS: SODIUM 117 MMOL/L (135-145)
[2018-03-20] MEDS: normal saline 1000ml 1,000 ML IV SCH (21:52)
[2018-03-20] MEDS ORDERED: LORazepam 2 mg/ml vial IV PRN (23:25)
[2018-03-20] MEDS ORDERED: LORazepam 2 mg/ml vial ONE (23:26)
[2018-03-21] MEDS: ipratropium 0.5 MG/2.5ML nebule IH SCH ×4 (01:54→20:18)
[2018-03-21 02:00] VITALS: BP 150/107
[2018-03-21] MEDS ORDERED: LORazepam 2 mg/ml vial IV ONE (02:50)
[2018-03-21] MEDS: HYDROmorphone 1 mg/ml syringe IV PRN (03:38)
[2018-03-21] MEDS ORDERED: LORazepam 2 mg/ml vial IV PRN (04:00)
[2018-03-21 05:51] LABS: ALBUMIN 2.1 G/DL (3.4-5.0); ANION GAP 2 (8-16); BLOOD UREA NITROGEN 9 MG/DL (7-18); BUN/CREATININE RATIO 23.7 (6.6-38.0); CALCIUM 7.5 MG/DL (8.5-10.1); CHLORIDE 86 MMOL/L (99-107); CREATININE 0.38 MG/DL (0.40-0.90); GLUCOSE 110 MG/DL (70-104); POTASSIUM 3.8 MMOL/L (3.5-5.1); SODIUM 121 MMOL/L (135-145); TOTAL CARBON DIOXIDE 32.6 MMOL/L (24-32); eGFR > 90 ML/MIN
[2018-03-21 06:00] VITALS: BP 98/46
[2018-03-21] MEDS: multivitamins, therapeutics tablet PO SCH (08:38)
[2018-03-21] MEDS: clopidogrel 75mg tablet PO SCH (08:38)
[2018-03-21] MEDS: normal saline 1000ml 1,000 ML IV SCH ×3 (08:38→23:02)
[2018-03-21] MEDS: gabapentin 300mg capsule PO SCH ×3 (08:38→20:13)
[2018-03-21] MEDS: lactobacillus rhamnosus 10,000 MMU CELLS/CAPSULE PO SCH ×2 (08:38→20:14)
[2018-03-21] MEDS: amLODIPine 5mg tablet PO SCH (08:38)
[2018-03-21] MEDS: lisinopril 20mg tablet PO SCH (08:38)
[2018-03-21] MEDS: ascorbic acid 500mg tablet PO SCH ×2 (08:38→20:13)
[2018-03-21] MEDS: aspirin 81mg tablet.DR PO SCH (08:39)
[2018-03-21] MEDS: albuterol 2.5 MG/3 ML nebule NEB PRN (09:33)
[2018-03-21 10:00] VITALS: BP 164/71
[2018-03-21 15:42] LABS: SODIUM,URINE RANDOM < 15 MEQ/L
[2018-03-21 16:12] LABS: OSMOLALITY UA 312 MOSM/K (50-1400)
[2018-03-21 18:00] VITALS: BP 136/58
[2018-03-21] MEDS: sennosides 8.6mg tablet PO SCH (20:13)
[2018-03-21 22:00] VITALS: BP 123/75
[2018-03-22] MEDS: ipratropium 0.5 MG/2.5ML nebule IH SCH ×2 (02:00→09:55)
[2018-03-22] MEDS: albuterol 2.5 MG/3 ML nebule NEB PRN ×2 (02:16→09:56)
[2018-03-22 07:39] VITALS: BP 124/56
[2018-03-22] MEDS: gabapentin 300mg capsule PO SCH (07:42)
[2018-03-22] MEDS: amLODIPine 5mg tablet PO SCH (07:42)
[2018-03-22] MEDS: lactobacillus rhamnosus 10,000 MMU CELLS/CAPSULE PO SCH (07:42)
[2018-03-22] MEDS: aspirin 81mg tablet.DR PO SCH (07:42)
[2018-03-22] MEDS: clopidogrel 75mg tablet PO SCH (07:43)
[2018-03-22] MEDS: ascorbic acid 500mg tablet PO SCH (07:43)
[2018-03-22] MEDS: multivitamins, therapeutics tablet PO SCH (07:43)
[2018-03-22] MEDS: lisinopril 20mg tablet PO SCH (07:44)
[2018-03-22] MEDS: normal saline 1000ml 1,000 ML IV SCH (07:45)
[2018-03-22 10:00] VITALS: BP 120/57
== END 2018-03-22 11:32 | DRG 470 ==
LOC: PAS IN 03-17 07:23 → EDSTATUS 03-17 10:30 → ORTHO 4S 03-17 13:00
PROVIDERS: ADMIT Orthopaedic Surgery; ATTEND Orthopaedic Surgery
PROC: 0SRB06Z Replacement of Left Hip Joint with Oxidized Zirconium on Polyethylene Synthetic Substitute, Open Approach (ICD-10-PCS; principal; 2018-03-17 10:01)
PROC: B32T1ZZ Computerized Tomography (CT Scan) of Left Pulmonary Artery using Low Osmolar Contrast (ICD-10-PCS; 2018-03-20)
PROC: B3201ZZ Computerized Tomography (CT Scan) of Thoracic Aorta using Low Osmolar Contrast (ICD-10-PCS; 2018-03-20)
PROC: B32S1ZZ Computerized Tomography (CT Scan) of Right Pulmonary Artery using Low Osmolar Contrast (ICD-10-PCS; 2018-03-20)
DX: M16.12 Unilateral primary osteoarthritis, left hip (principal); D62 Acute posthemorrhagic anemia; E87.1 Hypo-osmolality and hyponatremia; Z96.641 Presence of right artificial hip joint; I73.9 Peripheral vascular disease, unspecified; I10 Essential (primary) hypertension; G30.9 Alzheimer's disease, unspecified; I25.10 Atherosclerotic heart disease of native coronary artery without angina pectoris; J44.9 Chronic obstructive pulmonary disease, unspecified; Z79.82 Long term (current) use of aspirin; R00.0 Tachycardia, unspecified; R11.0 Nausea; Z90.710 Acquired absence of both cervix and uterus; Z88.0 Allergy status to penicillin; Z88.2 Allergy status to sulfonamides; Z79.899 Other long term (current) drug therapy; Z87.891 Personal history of nicotine dependence; Z82.49 Family history of ischemic heart disease and other diseases of the circulatory system; Z82.5 Family history of asthma and other chronic lower respiratory diseases
CPT/HCPCS: 36415; 36600; 71045; 71275; 72170; 80048; 80051; 80053; 80069; 81001; 82803; 83930; 83935; 84295; 84300; 84484; 85018; 85025; 85379; 85610; 85730; 86885; 86900; 86901; 87070; 87088; 93005; 94640; 94760; 97110; 97116; 97161; 97530; A4615; A7000; C1758; C1776; J0171; J0360; J0690; J0735; J1170; J1200; J1885; J2001; J2060; J2250; J2274; J2370; J2405; J2704; J2765; J2795; J3010; J3370; J3490; J7030; J7120; Q9967

== ENCOUNTER 2022-12-18 06:47 | Emergency (ER) | payer MEDICARE, BC ==
[~2022-12-18] VITALS: Ht 154.9 cm; Wt 48.0 kg
[~2022-12-18 06:47] MED LIST changes: +ACET-75 PO; +AMLO-101 PO; -AMLO1CAP9 PO; +IBUP-1984 PO; +MULT-1085 PO
--- NOTE | 2022-12-18 06:58 | NUR ---
REPEAT EKG WHEN PATIENT REC'D ROOM AND AFTER RT TREATMENT, PT TRIPODDING, UNABLE TO GET CLEAR READ. MADE AWARE.
[2022-12-18] MEDS ORDERED: ipratropium/albuterol 3ml nebule NEB ONE (07:00)
[2022-12-18 07:46] LABS: BASOPHILS % (AUTO) 0.5 % (0-1); EOSINOPHILS # (AUTO) 0.1 X10'3 (0-0.9); EOSINOPHILS % (AUTO) 1.5 % (0-6); HEMATOCRIT 43.7 % (35.0-45.0); HEMOGLOBIN 14.2 g/dl (12.0-16.0); LYMPHOCYTES # (AUTO) 0.5 X10'3 (1.1-4.8); LYMPHOCYTES % (AUTO) 7.7 % (21-51); MEAN CORPUSCULAR HEMOGLOBIN 31.8 PG (27.0-31.0); MEAN CORPUSCULAR HGB CONC 32.5 g/dL (33.0-36.5); MEAN CORPUSCULAR VOLUME 97.6 FL (78-98); MONOCYTES # (AUTO) 0.5 X10'3 (0-0.9); MONOCYTES % (AUTO) 8.7 % (2-12); NEUTROPHILS # (AUTO) 4.9 X10'3 (1.8-7.7); NEUTROPHILS % (AUTO) 81.6 % (42-75); PLATELET COUNT 204 X10'3 (140-440); RED BLOOD COUNT 4.48 X10'6 (4.20-5.60)
[2022-12-18 07:52] LABS: D-DIMER 0.49 MG/L FEU (0-0.50)
[2022-12-18 07:56] LABS: ALANINE AMINOTRANSFERASE 30 U/L (12-78); ALBUMIN 3.4 G/DL (3.4-5.0); ALKALINE PHOSPHATASE 58 IU/L (46-116); ANION GAP 4 (8-16); ASPARTATE AMINO TRANSFERASE 29 U/L (10-37); BILIRUBIN,TOTAL 0.5 MG/DL (0.1-1.0); BLOOD UREA NITROGEN 10 MG/DL (7-18); BUN/CREATININE RATIO 18.2 (10.0-20.0); CALCIUM 8.8 MG/DL (8.5-10.1); CHLORIDE 100 MMOL/L (99-107); CREATININE 0.55 MG/DL (0.40-0.90); GLUCOSE 105 MG/DL (70-104); POTASSIUM 4.6 MMOL/L (3.5-5.1); SODIUM 137 MMOL/L (135-145); TOTAL CARBON DIOXIDE 32.7 MMOL/L (24-32); TOTAL PROTEIN 6.7 G/DL (6.4-8.2); eGFR > 90 ML/MIN
--- NOTE | 2022-12-18 11:16 | NUR ---
Patient tolerated approx 5-6 steps for gait test
[2022-12-18 11:41] VITALS: BP 134/74
== END 2022-12-18 11:42 | disposition home or self-care (01) ==
LOC: ER 06:48
DX: R55 Syncope and collapse (principal); I10 Essential (primary) hypertension; J44.9 Chronic obstructive pulmonary disease, unspecified; I50.9 Heart failure, unspecified; Z88.0 Allergy status to penicillin; Z88.2 Allergy status to sulfonamides
CPT/HCPCS: 36415; 71045; 80053; 83605; 83880; 84145; 84484; 85025; 85379; 87040; 93005; 94640; 94760; 99285